=== PATIENT | female | born 1930 | race Caucasian/White ===

== ENCOUNTER 2016-12-05 11:13 | Inpatient (IN) | payer MEDICARE, OTHER ==
[~2016-12-05] VITALS: Ht 149.9 cm; Wt 61.0 kg
[~2016-12-05 11:13] MED LIST: ANT12.5 PO; COU2 PO; COUMADIN1 MG PO; FAMOTIDINE20 MG PO; FER300 PO; IBUPROFEN400 MG PO; LAC PO; LASIX20 MG PO; LEVAQUIN750 MG PO; LORAZEPAM0.5 MG PO; LOVASTATIN10 MG PO; MAC100 PO; METFORMIN ER500 M1 PO; NORCO1 TA2 PO; PEN500 PO; PENICILLIN VK250 MG PO; PRINIVIL5 MG PO; STOOL SOFTENER100 MG PO; UNK HTN MED; VITC PO; ZES5 PO; [UNRECOGNIZED DRUG - REMARK]
--- NOTE | 2016-12-05 11:20 | NUR ---
EKG IN PROGRESS IN TRIAGE
--- NOTE | 2016-12-05 11:28 | NUR ---
PT AMBULATOR SHADE KEITA WITH FAMILY. PT A&OX4, BREATHING E/U. EKG DONE IN TRIAGE AND SHOWN TO PT AWAITING ROOM AVAILABILITY.
--- NOTE | 2016-12-05 13:05 | NUR ---
DR. MATHEWS AT BEDSIDE FOR MSE; PT REPORTS HAVING "DISCOMFORT" SINCE SUNDAY AND REPORTS THAT IT MAY BE HER PACEMAKER, DENIES ANY PAIN, DENIES HAVING A DEFIB, PER PT FEELING "WEIRD" AND ANXIOUS, REPORTS HSE IS SUPPOSED TO HAVE HER PACEMAKER CHECKED THIS WEEK BUT REPORTS "I CAME IN FOR PEACE OF MIND"; PT REPORTS FEELING LIKE SHE MIGHT BE HAVING A PANICK ATTACK BUT DENIES HX OF ANXIETY
--- NOTE | 2016-12-05 13:45 | NUR ---
PT RESTING IN BED, IV INFUSING, NO DISTRESS NOTED. WILL CONTINUE TO MONITOR
[2016-12-05 14:04] LABS: BASOPHIL % 0.6 % (0-2); PLATELET COUNT 319 x10^3mcL (130-400); RED CELL DISTRIBUTION WIDTH 19.7 % (11.5-14.5)
[2016-12-05 14:06] LABS: microscopic required? YES; urine erythrocyte TRACE (NEGATIVE)
[2016-12-05 14:13] LABS: CALCIUM 9.2 mg/dL (8.5-10.1); CARBON DIOXIDE 26.9 mmol/L (21-32); CHLORIDE SERUM 108 mmol/L (98-107); CREATININE SERUM 0.8 mg/dL (0.6-1.0); GLUCOSE SERUM 110 mg/dL (74-106); POTASSIUM SERUM 3.5 mmol/L (3.5-5.1); SODIUM SERUM 140 mmol/L (136-145)
[2016-12-05 14:17] LABS: ALBUMIN 3.5 g/dL (3.4-5.0); ALKALINE PHOSPHATASE 94 U/L (46-116); ALT/SGPT 27 U/L (14-59); AST/SGOT 28 U/L (15-37); BILIRUBIN TOTAL 0.4 mg/dL (0.20-1.00); CHOLESTEROL 184 mg/dL (<200); CHOLESTEROL/HDL RATIO 3.2; HDL CHOLESTEROL 58 mg/dL (40-60); LIPASE 228 IU/L (73-393); TOTAL PROTEIN, SERUM 7.5 g/dL (6.4-8.2); TRIGLYCERIDES 110 mg/dL (<150)
[2016-12-05] MEDS ORDERED: LIPI10 PO (14:17)
[2016-12-05] MEDS ORDERED: PEPCID20 MG PO (14:18)
[2016-12-05] MEDS ORDERED: ZESTRIL5 MG PO (14:18)
[2016-12-05] MEDS ORDERED: PENICILLIN VK250 MG PO (14:19)
[2016-12-05] MEDS ORDERED: XARELTO10 M1 PO (14:19)
[2016-12-05] MEDS ORDERED: PEPTO BISM262 MG/11 PO (14:20)
[2016-12-05 14:23] LABS: FREE T4 1.34 ng/dL (0.76-1.46); FREE THYROXINE INDEX 3.5 ug/dL (1.4-4.5); T4(THYROXINE) 9.8 ug/dL (4.7-13.3)
[2016-12-05 14:35] LABS: T3 TOTAL 1.18 ng/mL
--- NOTE | 2016-12-05 15:03 | NUR ---
PT RESTING WITH DAUGHTER AT BEDSIDE. PT IN NO ACUTE DISTRESS.
--- NOTE | 2016-12-05 16:10 | NUR ---
REPORT TO [facility] TO ASSUME CARE, PT TO BE TRANSFERRED TO ROOM 241B
[2016-12-05 16:11] LABS: PHOSPHOROUS 4.2 mg/dL (2.5-4.9)
--- NOTE | 2016-12-05 16:23 | NUR ---
RECEIVED PT FROM ED VIA [facility], CAME IN DUE TO CHEST DISCOMFORT SINCE SUNDAY. AAOX4. NO SOB NOTED, LUNG SOUNDS CTA. ON 2LPM/NC, O2 OZI=013%. DENIES CHEST PAIN/PRESSURE AT THIS TIME, SR W/ 1ST DEG AVB ON THE MONITOR. W/ LEFT UPPER CHEST PACEMAKER ([employer]). DENIES ABDOMINAL DISCOMFORT. BOWEL SOUNDS ACTIVE. W/ LLE SWELLING. W/ RFA PURPLISH DISCOLORATION, GREGORY. IV SITE PATENT AND INTACT. SIDE RAILS UPX2. CALL LIGHT ON REACH. WILL CONT TO MONITOR
[2016-12-05 16:41] VITALS: BP 179/59
[2016-12-05 16:47] VITALS: Ht 149.9 cm; Wt 61.0 kg
[2016-12-05 18:06] VITALS: BP 121/100
--- NOTE | 2016-12-05 20:26 | NUR ---
PATIENT AWAKE, ALERT, ORIENTED X4 WATCHING TV IN BED. RESPIRATION EVEN AND UNLABORED, ON O2 2L PER NASAL CANNULA. ONGOING 0.9% NS AT 20 CC/HR INFUSING WELL AT THE RIGHT FOREARM. VOIDING FREELY WITHOUT DIFFICULTY IN THE BATHROOM WITH ASSIST. PRESENCE OF +3 EDEMA TO RLE. MILD GENERALIZED WEAKNESS NOTED. HEALING BRUISE TO RFA. ON TELE #12. PACEMAKER TO L UPPER CHEST. WILL CONTINUE TO MONITOR.
[2016-12-05 22:12] VITALS: BP 147/70
[2016-12-06 06:03] VITALS: BP 129/60
[2016-12-06 06:08] LABS: BASOPHIL % 0.5 % (0-2); PLATELET COUNT 281 x10^3mcL (130-400)
[2016-12-06 06:12] LABS: CALCIUM 8.5 mg/dL (8.5-10.1); CARBON DIOXIDE 24.6 mmol/L (21-32); CHLORIDE SERUM 111 mmol/L (98-107); CREATININE SERUM 0.7 mg/dL (0.6-1.0); GLUCOSE SERUM 86 mg/dL (74-106); POTASSIUM SERUM 3.9 mmol/L (3.5-5.1); SODIUM SERUM 144 mmol/L (136-145)
[2016-12-06 06:38] LABS: RED CELL DISTRIBUTION WIDTH 20.5 % (11.5-14.5)
--- NOTE | 2016-12-06 06:44 | NUR ---
PATIENT RESTING IN BED. RESPIRATION EVEN AND UNLABORED, ON ROOM AIR. DENIES PAIN. IV SITE TO RIGHT FOREARM PATENT AND INTACT. ASSISTED WITH NEEDS. SAFETY OBSERVED. PLACED CALL LIGHT WITHIN REACH AT ALL TIMES.
[2016-12-06 06:53] LABS: rbc morphology (normal/abnorm) ABNORMAL (NORMAL)
--- NOTE | 2016-12-06 08:18 | NUR ---
AAO TIMES 4. TELE # 12 SR WITH DEMAND PACER, PACING OCCASIONALLY. VS'S STABLE. NO SOB. LUNGS CTA. O2 SAT ON RA 97%. RLE EDEMA, PT STATES HISTORY OF LYMPHEDEMA, SHE WEARS A STUPPORT STOCKING ON RLE. TRACE EDEAM LLE. PERIPHERAL PULSES PALPABLE. NO C/O PAIN. PLEASANT, COOPERATIVE.
--- NOTE | 2016-12-06 09:03 | NUR ---
MEDICAL ROUNDS WERE DONE WITH DR MCARTHUR AND THE MEDICINE TEAM. THE PLAN FOR HER TODAY IS TO STAY ONE MORE DAY FOR CARDIAC ENZYMES TO BE COMPLETED. SHE WILL BE DC'D EARLY TOMORROW BEFORE HER DR'S APPT TOMORROW AT 1045.
[2016-12-06 10:29] VITALS: BP 166/70
[2016-12-06 13:44] VITALS: BP 144/77
--- NOTE | 2016-12-06 17:50 | NUR ---
AAO TIMES 4. TELE # 12 SR. COOPERATIVE AND PLEASANT. NO C/O PAIN. NO SOB. IV SITE LFA CDI. PT'S FAMILY PRESENT, SUPPORTIVE.
[2016-12-06 17:53] VITALS: BP 161/78
--- NOTE | 2016-12-06 19:30 | NUR ---
RECEIVED REPORT FROM [facility]. PT RESTING COMFORTABLY IN BED IN NO ACUTE DISTRESS OR DISCOMFORT. AAOX4. DENIES OF ADAME/DIZZINESS. ON TELE MON 12 PACED ON DEMAND. DENIES OF ANY CHEST PAIN/DISCOMFORT. RADIAL PULSES STRONG. PEDAL PULSES MOD. PT HAS A +2 PITTING EDEMA ON RLE. IN RA WITH SAT OF 97%. BREATHING EVENLY AND UNLABORED. NO SOB NOTED. LUNGS CTA. BS ACTIVE. ABD SOFT AND NON DISTENDED. VOIDS FREELY. DENIES OF ANY PAIN WHILE VOIDING. GEN WEAKNESS. PT HAS RFA ECCHYMOSIS AND REDNESS ON R PAZ. DENIES OF ANY PAIN. IV ON LFA PATENT PATENT. SAFETY MEASURES ENSURED. INSTRUCTED PT TO CALL FOR ANY NEEDS/ASSISTANCE. CALL LIGHT WITHIN REACH. WILL CONT TO MONITOR PT.
[2016-12-06 22:08] VITALS: BP 128/70
--- NOTE | 2016-12-07 05:02 | NUR ---
PT SLEPT COMFORTABLY THROUGH OUT THE NIGHT. WAS IN NO ACUTE DISTRESS OR DISCOMFORT. SAFETY MEASURES WERE ENSURED. CALL LIGHT WITHIN REACH. PT AWARE OF EARLY PLAN OF DISCHARGE FOR TODAY OUTPATIENT APPOINTMENT.
[2016-12-07] MEDS ORDERED: BACTRIM DS1 TAB PO (05:17)
[2016-12-07] MEDS ORDERED: BD LACTINEX1.4 MG PO (05:17)
[2016-12-07 05:30] VITALS: BP 169/68
[2016-12-07 06:17] VITALS: BP 148/75
[2016-12-07 06:19] VITALS: BP 148/75
--- NOTE | 2016-12-07 07:44 | NUR ---
AAO TIMES 4. TELE # 12 SR. LUNGS CTA. NO SOB. O2 SAT ON RA 97%. BS'S ACTIVE TIMES 4. RLE HISTORY OF LYMPHEDEMA, RIGHT LEG SWOLLEN. PERIPHERAL PULSES PALPABLE. PLEASANT, COOPERATIVE. IV SITE CDI. NO C/O PAIN.
[2016-12-07 09:15] VITALS: BP 172/79
--- NOTE | 2016-12-07 10:01 | NUR ---
DR CAMPOVERDE WAS NOTIFIED THAT PT'S BP IS 172/79, SHE IS ANXIOUS TO GO HOME. WE AGREED WITH HER THAT SHE WOULD BE READY TO LEAVE HERE AFTER DISCHARGE TO MAKE IT TO HER [address] CAMPOVERDE ORDERED HYDRALAZINE 10 MG PO, IT WAS GIVEN AND HER DTR IS NOW HERE TO PICK HER UP. DC'D THE SL ANGIO INTACT. PT WAS INSTRUCTED TO FOLLOW UP WITH HER DR TO DISCUSS HER BP MEDICATIONS. HER DISCHARGE INSTRUCTION SHEET WITH HER MED REC WAS ADJUSTED TO SHOW THE HYDRALIZE WAS GIVEN.
== END 2016-12-07 10:10 | disposition home or self-care (01) | DRG 391 ==
LOC: ED 11:13 → DU 14:52
PROVIDERS: Specialist; ADMIT Family Medicine
DX: K21.9 Gastro-esophageal reflux disease without esophagitis (principal); I50.43 Acute on chronic combined systolic (congestive) and diastolic (congestive) heart failure; I42.0 Dilated cardiomyopathy; N39.0 Urinary tract infection, site not specified; I16.0 Hypertensive urgency; I11.0 Hypertensive heart disease with heart failure; D64.9 Anemia, unspecified; E78.5 Hyperlipidemia, unspecified; Z68.27 Body mass index [BMI] 27.0-27.9, adult; Z95.0 Presence of cardiac pacemaker; Z85.41 Personal history of malignant neoplasm of cervix uteri
CPT/HCPCS: 83880; 84439; J0696; J7030; Q0092

== ENCOUNTER 2017-10-13 16:43 | Emergency (ER) | payer MEDICARE, OTHER ==
[~2017-10-13] VITALS: Ht 154.9 cm; Wt 60.3 kg
[~2017-10-13 16:43] MED LIST changes: +BACTRIM DS1 TAB PO; +BD LACTINEX1.4 MG PO; +LIPI10 PO; +PEPCID20 MG PO; +PEPTO BISM262 MG/11 PO; +XARELTO10 M1 PO; +ZESTRIL5 MG PO
[2017-10-13 16:48] VITALS: BP 165/77; Ht 154.9 cm; Wt 60.3 kg
== END 2017-10-13 17:47 | disposition home or self-care (01) ==
LOC: ED 16:43
DX: N39.0 Urinary tract infection, site not specified (principal); B37.9 Candidiasis, unspecified; I10 Essential (primary) hypertension; Z90.710 Acquired absence of both cervix and uterus

== ENCOUNTER 2018-06-25 14:42 | Emergency (ER) | payer MEDICARE, OTHER ==
[~2018-06-25] VITALS: Ht 147.3 cm; Wt 57.2 kg
[2018-06-25 14:54] VITALS: BP 150/72; Ht 147.3 cm; Wt 57.2 kg
== END 2018-06-25 16:58 | disposition home or self-care (01) ==
LOC: ED 14:42
DX: S60.222A Contusion of left hand, initial encounter (principal); I10 Essential (primary) hypertension; Z90.710 Acquired absence of both cervix and uterus; Z85.41 Personal history of malignant neoplasm of cervix uteri; X58.XXXA Exposure to other specified factors, initial encounter; Y93.89 Activity, other specified; Y92.89 Other specified places as the place of occurrence of the external cause; Y99.8 Other external cause status

== ENCOUNTER 2019-01-12 15:26 | Inpatient (IN) | payer BC, OTHER ==
[~2019-01-12] VITALS: Ht 152.4 cm; Wt 54.4 kg
[2019-01-12 15:36] VITALS: Ht 152.4 cm; Wt 54.4 kg
[2019-01-12 17:20] LABS: BASOPHIL % 0.5 % (0-2); PLATELET COUNT 310 x10^3mcL (130-400)
[2019-01-12 17:23] LABS: RED CELL DISTRIBUTION WIDTH 20.1 % (11.5-14.5)
[2019-01-12 17:39] LABS: ovalocyte/elliptocyte 2+; rbc morphology (normal/abnorm) ABNORMAL (NORMAL)
[2019-01-12 18:30] LABS: CALCIUM 8.8 mg/dL (8.5-10.1); CARBON DIOXIDE 27.7 mmol/L (21-32); CHLORIDE SERUM 106 mmol/L (98-107); GLUCOSE SERUM 86 mg/dL (74-106); POTASSIUM SERUM 4.1 mmol/L (3.5-5.1); SODIUM SERUM 142 mmol/L (136-145)
[2019-01-12 18:35] LABS: ALBUMIN 3.4 g/dL (3.4-5.0); ALKALINE PHOSPHATASE 77 U/L (46-116); ALT/SGPT 16 U/L (14-59); AST/SGOT 12 U/L (15-37); BILIRUBIN TOTAL 0.3 mg/dL (0.20-1.00); TOTAL PROTEIN, SERUM 7.1 g/dL (6.4-8.2)
[2019-01-12] MEDS ORDERED: FUROSEMIDE20 MG PO (19:51)
[2019-01-12] MEDS ORDERED: NATURAL IRON65 MG PO (19:53)
[2019-01-12] MEDS ORDERED: XARELTO10 M1 PO (19:53)
[2019-01-12 22:53] VITALS: BP 156/71
[2019-01-12 23:14] VITALS: BP 162/66
[2019-01-13 05:36] VITALS: BP 145/72
[2019-01-13 06:33] LABS: BASOPHIL % 0.7 % (0-2); PLATELET COUNT 275 x10^3mcL (130-400)
[2019-01-13 06:50] LABS: RED CELL DISTRIBUTION WIDTH 20.1 % (11.5-14.5)
[2019-01-13 07:17] LABS: CALCIUM 8.6 mg/dL (8.5-10.1); CARBON DIOXIDE 25.6 mmol/L (21-32); CHLORIDE SERUM 108 mmol/L (98-107); CREATININE SERUM 0.8 mg/dL (0.6-1.0); GLUCOSE SERUM 80 mg/dL (74-106); SODIUM SERUM 143 mmol/L (136-145)
[2019-01-13 07:51] LABS: ovalocyte/elliptocyte 1+; rbc morphology (normal/abnorm) ABNORMAL (NORMAL)
[2019-01-13 07:52] LABS: tear drop cell (dacryocyte) 1+
[2019-01-13 08:39] VITALS: BP 156/92
[2019-01-13 12:39] VITALS: BP 156/66
[2019-01-13 16:44] VITALS: BP 153/72
[2019-01-13 19:10] VITALS: BP 142/74
[2019-01-13 19:16] VITALS: BP 142/74
[2019-01-14 04:28] VITALS: BP 169/86
[2019-01-14 06:24] VITALS: BP 145/53
[2019-01-14 08:56] VITALS: BP 154/83
[2019-01-14 12:27] VITALS: BP 154/83
[2019-01-14 13:16] VITALS: BP 131/68
== END 2019-01-14 13:55 | disposition home or self-care (01) | DRG 315 ==
LOC: ED 15:26 → DU 19:23
PROVIDERS: Emergency Medicine; Internal Medicine; ADMIT Internal Medicine Pulmonary Disease
DX: T82.7XXA Infection and inflammatory reaction due to other cardiac and vascular devices, implants and grafts, initial encounter (principal); L03.313 Cellulitis of chest wall; I10 Essential (primary) hypertension; E78.5 Hyperlipidemia, unspecified; Z95.0 Presence of cardiac pacemaker; Z85.41 Personal history of malignant neoplasm of cervix uteri; Y71.1 Therapeutic (nonsurgical) and rehabilitative cardiovascular devices associated with adverse incidents; Y92.009 Unspecified place in unspecified non-institutional (private) residence as the place of occurrence of the external cause
CPT/HCPCS: G0378; J0696; J1650; J7050; Q0092

== ENCOUNTER 2019-04-11 15:02 | Emergency (ER) | payer BC, OTHER ==
[~2019-04-11] VITALS: Ht 157.5 cm; Wt 54.9 kg
[~2019-04-11 15:02] MED LIST changes: +FUROSEMIDE20 MG PO; +NATURAL IRON65 MG PO
[2019-04-11 15:29] VITALS: Ht 157.5 cm; Wt 54.9 kg
[2019-04-11 16:43] LABS: UA SPECIFIC GRAVITY 1.015 (1.005-1.035); microscopic required? YES; urine erythrocyte NEGATIVE (NEGATIVE)
[2019-04-11 16:47] LABS: BASOPHIL % 0.5 % (0-2); PLATELET COUNT 332 x10^3mcL (130-400); RED CELL DISTRIBUTION WIDTH 17.4 % (11.5-14.5)
[2019-04-11 16:52] LABS: AMPHETAMINE QUAL UR NONE DETECTED (See below)
[2019-04-11 16:58] LABS: CALCIUM 9.1 mg/dL (8.5-10.1); CARBON DIOXIDE 29.1 mmol/L (21-32); CHLORIDE SERUM 106 mmol/L (98-107); CREATININE SERUM 0.9 mg/dL (0.6-1.0); GLUCOSE SERUM 94 mg/dL (74-106); SODIUM SERUM 142 mmol/L (136-145)
[2019-04-11 17:08] LABS: ALBUMIN 3.6 g/dL (3.4-5.0); ALKALINE PHOSPHATASE 68 U/L (46-116); ALT/SGPT 18 U/L (14-59); AST/SGOT 15 U/L (15-37); BILIRUBIN TOTAL 0.3 mg/dL (0.20-1.00); CHOLESTEROL 194 mg/dL (<200); HDL CHOLESTEROL 60 mg/dL (40-60); LIPASE 234 IU/L (73-393); MAGNESIUM 2.1 mg/dL (1.8-2.4); TOTAL PROTEIN, SERUM 7.6 g/dL (6.4-8.2)
[2019-04-11 17:22] VITALS: BP 183/66
== END 2019-04-11 18:00 | disposition short-term general hospital (02) ==
LOC: ED 15:02
PROVIDERS: Emergency Medicine
DX: I44.2 Atrioventricular block, complete (principal); I10 Essential (primary) hypertension; Z90.710 Acquired absence of both cervix and uterus; Z95.0 Presence of cardiac pacemaker
CPT/HCPCS: 36415; 82962; 83880; Q0092